=== PATIENT | male | born 1980 | race Caucasian/White ===

== ENCOUNTER 2017-12-22 15:10 | Inpatient (IN) ==
[2017-12-22] MEDS ORDERED: INFLUENZA VIRUS VACCINE 0.5 ML SYRINGE IM ONE (20:19)
[2017-12-22] MEDS ORDERED: ALUMINUM/MAGNES/SIMETH MAX STR 30 ML UDCUP PO PRN (20:43)
[2017-12-22] MEDS ORDERED: chlorproMAZINE INJ 50 MG in SODIUM CHLORIDE 0.9% 100 ML IV PRN (20:43)
[2017-12-22] MEDS ORDERED: chlorproMAZINE 25 MG TABLET PO PRN (20:43)
[2017-12-22] MEDS ORDERED: LOPERAMIDE 2 MG CAPSULE PO PRN ×2 (20:43)
[2017-12-22] MEDS ORDERED: MAGNESIUM HYDROXIDE SUSP 30 ML UDCUP PO PRN (20:43)
[2017-12-22] MEDS ORDERED: MYLANTA/LIDO VISC 2:1 300 ML BOTTLE SWISH/SPIT PRN (20:43)
[2017-12-22] MEDS ORDERED: MYLANTA/LIDO VISC 2:1 300 ML BOTTLE SWISH/SWAL PRN (20:43)
[2017-12-22] MEDS ORDERED: ACETAMINOPHEN 325 MG TABLET PO PRN (20:43)
[2017-12-22] MEDS ORDERED: traMADol 50 MG TABLET PO PRN (20:43)
[2017-12-22] MEDS ORDERED: chlorproMAZINE INJ 25 MG in SODIUM CHLORIDE 0.9% 100 ML IV PRN (20:43)
[2017-12-22] MEDS ORDERED: PROMETHAZINE INJ 25 MG in SODIUM CHLORIDE 0.9% 50 ML IV PRN (20:43)
[2017-12-22] MEDS ORDERED: ONDANSETRON 4 MG/2 ML VIAL IV PRN (20:43)
[2017-12-22] MEDS ORDERED: LACTULOSE 20 GM/30 ML UDCUP PO PRN (20:43)
[2017-12-22] MEDS ORDERED: BENZTROPINE 2 MG/2 ML AMP IV PRN (20:43)
[2017-12-22] MEDS ORDERED: guaiFENesin 200 MG/10 ML UDCUP PO PRN (20:43)
[2017-12-22] MEDS ORDERED: diphenhydrAMINE CAP 25 MG CAPSULE PO PRN (20:43)
[2017-12-22] MEDS ORDERED: ALPRAZolam 0.25 MG TABLET PO PRN (20:43)
[2017-12-22] MEDS: SODIUM CHLORIDE 0.9% 1,000 ML IV SCH (21:13)
[2017-12-22 22:42] LABS: Apearance,Urine CLEAR (Clear); Bilirubin,Urine Negative (Negative); Blood, Urine Small mg/dL (Negative); Glucose,Urine (UA) Negative (Negative); Ketones,Urine Negative (Negative); Mucus,Urine Occasional /LPF (Occasional); Nitrite,Urine Negative (Negative); Protein,Urine Negative; RBC,Urine 3 /HPF (0-4); Urine Color Yellow (Yellow); Urine Specific Gravity 1.017 (1.001-1.035); WBC,Urine 1 /HPF (0-6)
[2017-12-23 04:54] LABS: Basophils % 0.5 % (0.0-0.8); Eosinophils # 0.3 10*3/uL (0.0-0.87); Eosinophils % 3.5 % (0.00-10.9); Hematocrit 34.3 VOL% (42.0-52.0); Hemoglobin 10.9 GM/DL (14.0-18.0); Immature Granulocytes % 1.1 %; Immature Granulocytes Absolute 0.09 #; Lymphocytes # 1.1 10*3/uL (1.4-4.0); Lymphocytes % 13.4 % (21.2-54.2); Mean Corpuscular HGB Conc 31.8 GM/DL (32-36); Mean Corpuscular Hemoglobin 26 PG (27-34); Mean Corpuscular Volume 81.1 FL (87-102); Mean Platelet Volume 9.5 FL (9.6-12.0); Monocytes # 0.8 10*3/uL (0.11-0.8); Monocytes % 9.3 % (1.7-12.7); Neutrophils # 5.9 10*3/uL (1.4-7.4); Neutrophils % 72.2 % (38.7-73.9); Platelet Count 207 T/CUMM (130-400); Red Blood Count 4.23 MC/CUMM (3.8-5.5); Red Cell Distribution Width 14.3 % (9.3-17.3); White Blood Count 8.2 T/CUMM (4-12)
[2017-12-23 05:20] LABS: Alanine Aminotransferase 24 U/L (16-61); Albumin 3.2 G/DL (3.4-5.0); Alkaline Phosphatase 90 U/L (45-117); Aspartate Amino Transferase 21 U/L (0-37); Beta HCG Titer < 1.0 mIU/ml (0-1); Bilirubin,Total < 0.39 MG/DL (0.2-1.0); Blood Urea Nitrogen 8 MG/DL (7-18); Calcium 8.2 MG/DL (8.5-10.1); Glucose 89 MG/DL (74-106); Osmolality,Calculated 266.1 MOS/KG (273-304); Potassium 3.4 MMOL/L (3.5-5.1); Sodium 135 MMOL/L (136-145); Total Protein 6.8 G/DL (6.4-8.3); Uric Acid 2.9 MG/DL (3.5-7.2)
[2017-12-23] MEDS: SODIUM CHLORIDE 0.9% 1,000 ML IV SCH (06:06)
[2017-12-23] MEDS ORDERED: OXcarbazepine 300 MG TABLET PO SCH (07:00)
[2017-12-23] MEDS ORDERED: tiZANidine 4 MG TABLET PO PRN (07:21)
[2017-12-23] MEDS: GRANISETRON 1 MG/1 ML VIAL IV SCH (11:43)
[2017-12-23] MEDS: DEXAMETHASONE INJ 20 MG in SODIUM CHLORIDE 0.9% 50 ML IV SCH (11:47)
[2017-12-23] MEDS: ETOPOSIDE 200 MG in SODIUM CHLORIDE 0.9% 500 ML IV SCH (13:14)
[2017-12-24] MEDS: OXCARBAZEPINE 600 MG PO SCH ×3 (01:02→18:40)
[2017-12-24] MEDS: SODIUM CHLORIDE 0.9% 1,000 ML IV SCH ×3 (03:37→17:08)
[2017-12-24] MEDS: DEXAMETHASONE INJ 20 MG in SODIUM CHLORIDE 0.9% 50 ML IV SCH (10:01)
[2017-12-24] MEDS: GRANISETRON 1 MG/1 ML VIAL IV SCH (10:02)
[2017-12-24] MEDS: ETOPOSIDE 200 MG in SODIUM CHLORIDE 0.9% 500 ML IV SCH (11:42)
[2017-12-24] MEDS: TEMAZEPAM 7.5 MG CAPSULE PO PRN (21:53)
[2017-12-25] MEDS: SODIUM CHLORIDE 0.9% 1,000 ML IV SCH ×3 (01:16→17:19)
[2017-12-25] MEDS: OXCARBAZEPINE 600 MG PO SCH ×2 (06:33→18:37)
[2017-12-25] MEDS: DEXAMETHASONE INJ 20 MG in SODIUM CHLORIDE 0.9% 50 ML IV SCH (09:14)
[2017-12-25] MEDS: GRANISETRON 1 MG/1 ML VIAL IV SCH (09:15)
[2017-12-25] MEDS: ETOPOSIDE 200 MG in SODIUM CHLORIDE 0.9% 500 ML IV SCH (10:27)
[2017-12-25 11:58] LABS: Basophils % 0.2 % (0.0-0.8); Eosinophils % 0.1 % (0.00-10.9); Hematocrit 37.3 VOL% (42.0-52.0); Hemoglobin 11.9 GM/DL (14.0-18.0); Immature Granulocytes % 0.5 %; Immature Granulocytes Absolute 0.05 #; Lymphocytes # 0.5 10*3/uL (1.4-4.0); Lymphocytes % 5.2 % (21.2-54.2); Mean Corpuscular HGB Conc 31.9 GM/DL (32-36); Mean Corpuscular Hemoglobin 27 PG (27-34); Mean Corpuscular Volume 83.1 FL (87-102); Mean Platelet Volume 8.9 FL (9.6-12.0); Monocytes # 0.2 10*3/uL (0.11-0.8); Monocytes % 1.9 % (1.7-12.7); Neutrophils # 8.8 10*3/uL (1.4-7.4); Neutrophils % 92.1 % (38.7-73.9); Platelet Count 215 T/CUMM (130-400); Red Blood Count 4.49 MC/CUMM (3.8-5.5); Red Cell Distribution Width 14.4 % (9.3-17.3); White Blood Count 9.6 T/CUMM (4-12)
[2017-12-25 12:19] LABS: Band Neutrophils 7 % (0-10); Lymphocytes 4 % (20-55); Platelet Estimate Normal; Segmented Neutrophils 89 % (50-85); Total Cells Counted 100
[2017-12-25 12:21] LABS: Alanine Aminotransferase 31 U/L (16-61); Albumin 3.5 G/DL (3.4-5.0); Alkaline Phosphatase 81 U/L (45-117); Aspartate Amino Transferase 23 U/L (0-37); Bilirubin,Total < 0.39 MG/DL (0.2-1.0); Blood Urea Nitrogen 12 MG/DL (7-18); Calcium 8.3 MG/DL (8.5-10.1); Glucose 98 MG/DL (74-106); Osmolality,Calculated 272.8 MOS/KG (273-304); Potassium 3.8 MMOL/L (3.5-5.1); Sodium 137 MMOL/L (136-145); Total Protein 7.3 G/DL (6.4-8.3)
[2017-12-25] MEDS ORDERED: DOCUSATE SODIUM 100 MG CAPSULE PO PRN (13:20)
[2017-12-25] MEDS: TEMAZEPAM 7.5 MG CAPSULE PO PRN (21:46)
[2017-12-26] MEDS: SODIUM CHLORIDE 0.9% 1,000 ML IV SCH ×2 (01:21→18:13)
[2017-12-26] MEDS: OXCARBAZEPINE 600 MG PO SCH ×2 (06:17→18:14)
[2017-12-26] MEDS: DEXAMETHASONE INJ 20 MG in SODIUM CHLORIDE 0.9% 50 ML IV SCH (09:42)
[2017-12-26] MEDS: GRANISETRON 1 MG/1 ML VIAL IV SCH (09:42)
[2017-12-26] MEDS: ETOPOSIDE 200 MG in SODIUM CHLORIDE 0.9% 500 ML IV SCH (10:35)
[2017-12-27] MEDS: SODIUM CHLORIDE 0.9% 1,000 ML IV SCH ×2 (02:27)
[2017-12-27] MEDS: OXCARBAZEPINE 600 MG PO SCH (07:10)
[2017-12-27] MEDS: GRANISETRON 1 MG/1 ML VIAL IV SCH (09:18)
[2017-12-27] MEDS: DEXAMETHASONE INJ 20 MG in SODIUM CHLORIDE 0.9% 50 ML IV SCH (09:23)
[2017-12-27] MEDS: ETOPOSIDE 200 MG in SODIUM CHLORIDE 0.9% 500 ML IV SCH (09:59)
[2017-12-27 12:13] VITALS: BP 120/69
== END 2017-12-27 13:45 | disposition home or self-care (01) | DRG 847 ==
LOC: MERGE 16:11 → N.4E 16:11
PROVIDERS: ADMIT Specialist; ATTEND Specialist

== ENCOUNTER 2018-01-19 06:58 | Inpatient (IN) ==
[2018-01-19] MEDS ORDERED: INFLUENZA VIRUS VACCINE 0.5 ML SYRINGE IM ONE (08:00)
[2018-01-19] MEDS ORDERED: DESFLURANE 1 UNIT/15 MINUTE INH ONE (08:10)
[2018-01-19] MEDS ORDERED: fentaNYL 100 MCG/2 ML VIAL ONE (08:10)
[2018-01-19] MEDS ORDERED: PROPOFOL 200 MG/20 ML VIAL IV ONE (08:10)
[2018-01-19] MEDS ORDERED: MIDAZOLAM 2 MG/2 ML VIAL ONE (08:10)
[2018-01-19] MEDS ORDERED: ROCURONIUM 100 MG/10 ML VIAL IV ONE (08:11)
[2018-01-19] MEDS ORDERED: NEOSTIGMINE 10 MG/10 ML VIAL ONE (08:11)
[2018-01-19] MEDS ORDERED: ONDANSETRON 4 MG/2 ML VIAL ONE (08:11)
[2018-01-19] MEDS ORDERED: GLYCOPYRROLATE 0.4 MG/2 ML VIAL ONE (08:11)
[2018-01-19 08:54] LABS: Basophils # 0.1 10*3/uL (0.0-0.2); Basophils % 0.7 % (0.0-0.8); Eosinophils # 0.1 10*3/uL (0.0-0.87); Eosinophils % 0.9 % (0.00-10.9); Immature Granulocytes % 4.5 %; Immature Granulocytes Absolute 0.32 #; Lymphocytes # 1.1 10*3/uL (1.4-4.0); Lymphocytes % 16.2 % (21.2-54.2); Mean Corpuscular HGB Conc 32.4 GM/DL (32-36); Mean Corpuscular Hemoglobin 27 PG (27-34); Mean Corpuscular Volume 84.1 FL (87-102); Mean Platelet Volume 8.9 FL (9.6-12.0); Monocytes # 0.6 10*3/uL (0.11-0.8); Monocytes % 8.7 % (1.7-12.7); Neutrophils # 4.9 10*3/uL (1.4-7.4); Platelet Count 197 T/CUMM (130-400); Red Cell Distribution Width 16.8 % (9.3-17.3); White Blood Count 7.1 T/CUMM (4-12)
[2018-01-19 09:03] LABS: Alanine Aminotransferase 34 U/L (16-61); Albumin 3.6 G/DL (3.4-5.0); Alkaline Phosphatase 103 U/L (45-117); Aspartate Amino Transferase 18 U/L (0-37); Bilirubin,Total < 0.39 MG/DL (0.2-1.0); Blood Urea Nitrogen 9 MG/DL (7-18); Calcium 8.4 MG/DL (8.5-10.1); Glucose 114 MG/DL (74-106); Osmolality,Calculated 265.4 MOS/KG (273-304); Potassium 3.6 MMOL/L (3.5-5.1); Sodium 133 MMOL/L (136-145); Total Protein 6.8 G/DL (6.4-8.3)
[2018-01-19 09:04] LABS: Beta HCG Titer < 1.00 mIU/ml (0-1)
[2018-01-19] MEDS ORDERED: DEXAMETHASONE 10 MG/1 ML VIAL IV SCH (09:30)
[2018-01-19] MEDS ORDERED: CISplatin 50 MG in SODIUM CHLORIDE 0.9% 500 ML IV SCH (10:00)
[2018-01-19] MEDS: SODIUM CHLORIDE 0.9% 1,000 ML IV SCH ×2 (10:41→21:45)
[2018-01-19 11:21] LABS: Apearance,Urine CLEAR (Clear); Bilirubin,Urine Negative (Negative); Blood, Urine Negative (Negative); Glucose,Urine (UA) Negative (Negative); Ketones,Urine Negative (Negative); Mucus,Urine Occasional /LPF (Occasional); Nitrite,Urine Negative (Negative); Protein,Urine Negative; RBC,Urine 1 /HPF (0-4); Urine Color Straw (Yellow); Urine Specific Gravity 1.011 (1.001-1.035); Urine Urobilinogen < 2.0 EU/DL (0.2-1.0); WBC,Urine <1 /HPF (0-6)
[2018-01-19] MEDS: DEXAMETHASONE 10 MG/1 ML VIAL IV SCH (13:48)
[2018-01-19] MEDS: GRANISETRON 1 MG/1 ML VIAL IV SCH (13:52)
[2018-01-19] MEDS: ETOPOSIDE 200 MG in SODIUM CHLORIDE 0.9% 500 ML IV SCH (14:49)
[2018-01-19] MEDS: CISPLATIN IV SCH (16:11)
[2018-01-19] MEDS: SODIUM CHLORIDE 0.9% IV SCH (16:11)
[2018-01-20] MEDS: SODIUM CHLORIDE 0.9% 1,000 ML IV SCH ×5 (01:50→19:02)
[2018-01-20] MEDS: GRANISETRON 1 MG/1 ML VIAL IV SCH (12:35)
[2018-01-20] MEDS: DEXAMETHASONE 10 MG/1 ML VIAL IV SCH (12:36)
[2018-01-20] MEDS: ETOPOSIDE 200 MG in SODIUM CHLORIDE 0.9% 500 ML IV SCH (14:34)
[2018-01-20] MEDS: SODIUM CHLORIDE 0.9% IV SCH (15:41)
[2018-01-20] MEDS: CISPLATIN IV SCH (15:41)
[2018-01-21] MEDS: SODIUM CHLORIDE 0.9% 1,000 ML IV SCH ×4 (01:50→21:43)
[2018-01-21] MEDS ORDERED: LACTULOSE 20 GM/30 ML UDCUP PO PRN (07:41)
[2018-01-21] MEDS ORDERED: ONDANSETRON 4 MG/2 ML VIAL IV PRN (07:41)
[2018-01-21] MEDS ORDERED: ACETAMINOPHEN 325 MG TABLET PO PRN (07:41)
[2018-01-21] MEDS ORDERED: TEMAZEPAM 7.5 MG CAPSULE PO PRN (07:41)
[2018-01-21] MEDS ORDERED: MYLANTA/LIDO VISC 2:1 300 ML BOTTLE SWISH/SPIT PRN (07:41)
[2018-01-21] MEDS ORDERED: ALUMINUM/MAGNES/SIMETH MAX STR 30 ML UDCUP PO PRN (07:41)
[2018-01-21] MEDS ORDERED: ALPRAZolam 0.25 MG TABLET PO PRN (07:41)
[2018-01-21] MEDS ORDERED: MAGNESIUM HYDROXIDE SUSP 30 ML UDCUP PO PRN (07:41)
[2018-01-21] MEDS ORDERED: diphenhydrAMINE CAP 25 MG CAPSULE PO PRN (07:41)
[2018-01-21] MEDS ORDERED: LOPERAMIDE 2 MG CAPSULE PO PRN ×2 (07:41)
[2018-01-21] MEDS ORDERED: MYLANTA/LIDO VISC 2:1 300 ML BOTTLE SWISH/SWAL PRN (07:41)
[2018-01-21] MEDS ORDERED: guaiFENesin 200 MG/10 ML UDCUP PO PRN (07:41)
[2018-01-21] MEDS ORDERED: chlorproMAZINE INJ 25 MG in SODIUM CHLORIDE 0.9% 100 ML IV PRN (07:41)
[2018-01-21] MEDS ORDERED: traMADol 50 MG TABLET PO PRN (07:41)
[2018-01-21] MEDS ORDERED: chlorproMAZINE INJ 50 MG in SODIUM CHLORIDE 0.9% 100 ML IV PRN (07:41)
[2018-01-21] MEDS ORDERED: BENZTROPINE 2 MG/2 ML AMP IV PRN (07:41)
[2018-01-21] MEDS ORDERED: chlorproMAZINE 25 MG TABLET PO PRN (07:41)
[2018-01-21] MEDS ORDERED: PROMETHAZINE INJ 25 MG in SODIUM CHLORIDE 0.9% 50 ML IV PRN (07:41)
[2018-01-21] MEDS: GRANISETRON 1 MG/1 ML VIAL IV SCH (13:49)
[2018-01-21] MEDS: DEXAMETHASONE 10 MG/1 ML VIAL IV SCH (13:50)
[2018-01-21] MEDS: ETOPOSIDE 200 MG in SODIUM CHLORIDE 0.9% 500 ML IV SCH (14:28)
[2018-01-21] MEDS: SODIUM CHLORIDE 0.9% IV SCH (15:35)
[2018-01-21] MEDS: CISPLATIN IV SCH (15:35)
[2018-01-22] MEDS: GRANISETRON 1 MG/1 ML VIAL IV SCH (11:02)
[2018-01-22] MEDS: DEXAMETHASONE 10 MG/1 ML VIAL IV SCH (11:04)
[2018-01-22] MEDS: ETOPOSIDE 200 MG in SODIUM CHLORIDE 0.9% 500 ML IV SCH (11:39)
[2018-01-22] MEDS: SODIUM CHLORIDE 0.9% 1,000 ML IV SCH ×4 (11:42→23:42)
[2018-01-22] MEDS: CISPLATIN IV SCH (12:58)
[2018-01-22] MEDS: SODIUM CHLORIDE 0.9% IV SCH (12:58)
[2018-01-23 05:04] LABS: Basophils % 0.5 % (0.0-0.8); Eosinophils % 0.1 % (0.00-10.9); Hematocrit 34.1 VOL% (42.0-52.0); Immature Granulocytes Absolute 0.07 #; Lymphocytes # 1.3 10*3/uL (1.4-4.0); Lymphocytes % 17.8 % (21.2-54.2); Mean Corpuscular HGB Conc 32.3 GM/DL (32-36); Mean Corpuscular Hemoglobin 27 PG (27-34); Mean Platelet Volume 9.3 FL (9.6-12.0); Monocytes # 0.3 10*3/uL (0.11-0.8); Monocytes % 4.4 % (1.7-12.7); Neutrophils # 5.6 10*3/uL (1.4-7.4); Neutrophils % 76.2 % (38.7-73.9); Platelet Count 210 T/CUMM (130-400); Red Blood Count 4.11 MC/CUMM (3.8-5.5); Red Cell Distribution Width 16.7 % (9.3-17.3); White Blood Count 7.3 T/CUMM (4-12)
[2018-01-23 05:31] LABS: Albumin 3.3 G/DL (3.4-5.0); Bilirubin,Total 0.5 MG/DL (0.2-1.0); Calcium 8.4 MG/DL (8.5-10.1); Osmolality,Calculated 264.2 MOS/KG (273-304); Potassium 3.5 MMOL/L (3.5-5.1); Total Protein 6.6 G/DL (6.4-8.3)
[2018-01-23] MEDS: SODIUM CHLORIDE 0.9% 1,000 ML IV SCH ×2 (05:52→08:55)
[2018-01-23] MEDS: DEXAMETHASONE 10 MG/1 ML VIAL IV SCH (08:24)
[2018-01-23] MEDS: GRANISETRON 1 MG/1 ML VIAL IV SCH (08:27)
[2018-01-23] MEDS: ETOPOSIDE 200 MG in SODIUM CHLORIDE 0.9% 500 ML IV SCH (08:56)
[2018-01-23] MEDS: CISPLATIN IV SCH (10:11)
[2018-01-23] MEDS: SODIUM CHLORIDE 0.9% IV SCH (10:11)
[2018-01-23] MEDS ORDERED: HEPARIN LOCK FLUSH 500 UNIT/5 ML SYRINGE IV ONE (12:15)
[2018-01-23 17:00] VITALS: BP 124/69
== END 2018-01-23 13:25 | disposition home or self-care (01) | DRG 847 ==
LOC: N.4E 06:58
PROVIDERS: ADMIT Specialist; ATTEND Specialist